=== PATIENT | female | born 1990 | race Caucasian/White ===

== ENCOUNTER → 2018-10-24 | Outpatient (CLI) | payer OTHER ==
--- NOTE | 2018-10-24 12:42 | US ---
EXAMINATION TYPE: US kidneys/renal and bladder DATE OF EXAM: 10/24/2018 COMPARISON: NONE CLINICAL HISTORY: O16.2 Unspecified maternal hypertension, se. Hypertension, patient is 23 weeks preg nant EXAM MEASUREMENTS: Right Kidney: 11.8 x 4.9 x 6.3 cm Left Kidney: 11.0 x 5.5 x 4.7 cm Right Kidney: no hydronephrosis or masses seen Left Kidney: no hydronephrosis or masses seen Bladder: not fully distended Bilateral Jets seen: no There is no evidence for hydronephrosis at this point in time. No nephrolithiasis is seen. No eli s are identified. The urinary bladder is anechoic. Bilateral ureteral jets are seen. IMPRESSION: No distinct abnormality seen.
--- NOTE | 2018-10-24 19:20 | ECHOF ---
Referral Reason:[id number].20 MEASUREMENTS -------- HEIGHT: 160.0 cm WEIGHT: 86.2 kg BP: IVSd: 1.4 cm (0.6 - 1.1) LVIDd: 4.1 cm (3.9 - 5.3) LVPWd: 1.7 cm (0.6 - 1.1) IVSs: 1.5 cm LVIDs: 3.5 cm LVPWs: 1.7 cm LA Diam: 3.3 cm (2.7 - 3.8) LAESV Index (A-L): 29.40 ml/m Ao Diam: 3.1 cm (2.0 - 3.7) AV Cusp: 2.2 cm (1.5 - 2.6) LA Diam: 3.5 cm (2.7 - 3.8) MV EXCURSION: 16.920 mm (> 18.000) MV EF SLOPE: 100 mm/s (70 - 150) EPSS: 0.9 cm MV E Richi: 0.84 m/s MV DecT: 160 ms MV A Richi: 0.56 m/s MV E/A Ratio: 1.49 RAP: 5.00 mmHg RVSP: 19.26 mmHg FINDINGS -------- Sinus rhythm. This was a technically good study. The left ventricular size is normal. There is moderate concentric left ventricular hypertrophy. O verall left ventricular systolic function is normal with, an EF between 55 - 60 %. The right ventricle is normal in size. The left atrial size is normal. The right atrial size is normal. The aortic valve is trileaflet, and appears structurally normal. No aortic stenosis or regurgitation. Mild mitral annular calcification present. Mild mitral regurgitation is present. Mild tricuspid regurgitation present. There is no evidence of pulmonary hypertension. The right v entricular systolic pressure, as measured by Doppler, is 19.26mmHg. There is no pulmonic regurgitation present. There is no pericardial effusion. CONCLUSIONS -------- 1. The left ventricular size is normal. 2. There is moderate concentric left ventricular hypertrophy. 3. Overall left ventricular systolic function is normal with, an EF between 55 - 60 %. 4. The right ventricle is normal in size. 5. The left atrial size is normal. 6. The right atrial size is normal. 7. The aortic valve is trileaflet, and appears structurally normal. No aortic stenosis or regurgitati on. 8. Mild mitral annular calcification present. 9. Mild mitral regurgitation is present. 10. Mild tricuspid regurgitation present. 11. There is no evidence of pulmonary hypertension. 12. The right ventricular systolic pressure, as measured by Doppler, is 19.26mmHg. 13. There is no pulmonic regurgitation present. 14. There is no pericardial effusion. EXECUTIVE COMPENSATION ANALYST: Deysi Gaona RDCS
== END ==
LOC: RADUSWWP 11:52
PROVIDERS: ATTEND Obstetrics & Gynecology
DX: O16.2 Unspecified maternal hypertension, second trimester (principal); Z3A.20 20 weeks gestation of pregnancy
CPT/HCPCS: 76770; 93005; 93306

== ENCOUNTER 2018-12-23 12:24 | Outpatient (CLI) | payer OTHER ==
[2018-12-23] MEDS ORDERED: BETAMET ACET-BETAMETH SOD PHOS 6 MG/ML VIAL IM SCH (13:00)
--- NOTE | 2018-12-24 07:44 | P.MSEPDOC ---
Presenting Problems - Arrival Data Date of Arrival on Unit: 12/23/18 Time of Arrival on Unit: 12:24 Mode of Transport: Ambulatory - Complaint OB-Reason for Admission/Chief Complaint: Celestone Injection Comment: Presents from office; per Dr. Ghosh order for 1st dose of Celestone 12mg, IM x1 now followed by 12mg Celestone IM in 24 hours. Disposition - Disposition OB Disposition: Discharge to home Discharge Date: 12/23/18 Discharge Time: 13:00 I agree with the RN Medical Screening Exam: Yes Risk & Benefit of care provided described in d/c instruction: No Diagnosis: )26.93
== END 2018-12-23 13:00 | disposition home or self-care (01) ==
LOC: FBPOP 12:24
PROVIDERS: ATTEND Obstetrics & Gynecology
DX: O26.93 Pregnancy related conditions, unspecified, third trimester (principal); Z3A.00 Weeks of gestation of pregnancy not specified
CPT/HCPCS: 96372

== ENCOUNTER 2018-12-24 12:45 | Outpatient (CLI) | payer OTHER ==
[2018-12-24] MEDS ORDERED: BETAMET ACET-BETAMETH SOD PHOS 6 MG/ML VIAL IM SCH (13:15)
== END 2018-12-24 13:23 | disposition home or self-care (01) ==
LOC: FBPOP 12:45
PROVIDERS: ATTEND Obstetrics & Gynecology
DX: O26.93 Pregnancy related conditions, unspecified, third trimester (principal); Z3A.32 32 weeks gestation of pregnancy
CPT/HCPCS: 96372; J0702

== ENCOUNTER 2019-01-08 17:48 | Observation (INO) | payer OTHER ==
[2019-01-08 18:42] LABS: Basophils % (A) 0 %; Eosinophils # (A) 0.2 k/uL (0-0.7); Eosinophils % (A) 2 %; HCT 34.2 % (34.0-46.0); HGB 11.2 gm/dL (11.4-16.0); Lymphocytes # (A) 1.4 k/uL (1.0-4.8); Lymphocytes % (A) 14 %; MCH 29.9 pg (25.0-35.0); MCHC 32.6 g/dL (31.0-37.0); MCV 91.6 fL (80.0-100.0); Mean Platelet Volume 8.7; Monocytes # (A) 0.5 k/uL (0-1.0); Monocytes % (A) 5 %; Neutrophils # (A) 7.6 k/uL (1.3-7.7); Neutrophils % (A) 76 %; Platelet Count 195 k/uL (150-450); RBC 3.73 m/uL (3.80-5.40); RDW 12.7 % (11.5-15.5); WBC 9.9 k/uL (3.8-10.6)
[2019-01-08 18:47] LABS: Appearance,Urine Clear (Clear); Bilirubin,Urine Negative (Negative); Blood,Urine Negative (Negative); Color,Urine Yellow; Glucose,Urine (UA) Negative (Negative); Ketones,Urine Negative (Negative); Leukocyte Esterase,Urine Trace (Negative); Mucus,Urine Rare /hpf; Nitrite,Urine Negative (Negative); Protein,Urine Negative (Negative); RBC,Urine <1 /hpf (0-5); Specific Gravity,Urine 1.018 (1.001-1.035); Squamous Epithelial Cell,Urine 5 /hpf (0-4); Urobilinogen,Urine <2.0 mg/dL (<2.0); WBC,Urine 6 /hpf (0-5)
[2019-01-08 18:49] VITALS: BMI 34.3
[2019-01-08 18:49] LABS: Uric Acid 5.1 mg/dL (3.7-7.4)
[2019-01-08 20:23] VITALS: RESP 16
[2019-01-08] MEDS: LABETALOL 200 MG TAB PO SCH (22:00)
[2019-01-09 05:13] VITALS: BP 151/82; PULSE 68; TEMP 96.6
[2019-01-09] MEDS ORDERED: LEVOTHYROXINE 50 MCG TAB PO SCH (06:30)
--- NOTE | 2019-01-09 07:30 | P.HPOB ---
History of Present Illness H&P Date: 01/09/19 This is a 29-year-old white female 1 para 0 EDC 02/18/2019 at 34-2/7 weeks' gestation. Patient's history is remarkable for chronic hypertension since age 10. She had been on 2 different antihypertensive medications, but has not taken them for 2-3 years secondary to lack of insurance and inability to pay for her medications. During the course of this , maternal- medicine consult was obtained. Patient has been reasonably stable on labetalol 600 mg twice daily. However, at the office yesterday her initial blood pressure was 160/100. Recommendation was for overnight hospitalization and blood pressure monitoring. This has been accomplished, please see below. Patient states fetus is been active. She denies headache, visual changes, or right upper quadrant pain. Past medical history is significant for hypertension since age 10, sporadically treated. She also has hypothyroidism and asthma. Past surgical history negative. Current medications labetalol 600 mg twice daily, levothyroxine 50 mg daily, vitamin daily, baby aspirin daily. ALLERGIES include seasonal ALLERGIES, and Ceclor to which patient is unable to describe her ALLERGIC response. Family history is significant for hypertension, diabetes, stroke, renal failure, heart attack, autism, asthma. 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 She is never been a smoker and denies alcohol or drug use. history significant for blood type B positive, rubella status immune. VDRL testing, urine culture, hepatitis B surface antigen, HIV testing, gonorrhea and chlamydia cultures all negative. Liver enzymes, uric acid all within normal range. 24 hour urines positive for 341 g of protein most recent sample. Renal ultrasound negative. EKG within normal limits. Echocardiogram consistent with mild left ventricular hypertrophy. Betamethasone has been received 2. On exam patient is 5 foot 2 inches, 194 pounds. Initial blood pressure in labor and delivery 170s over 100s. Blood pressure stabilization noted, checked every 2 hours through the night. Blood pressure ranging 1:30 to 150s over 70s to 90s. Patient has no peripheral edema. She has 1+ reflexes. heart rate is consistent with reactive NST. Chest is clear in all hollins. AST, ALTs, uric acid all within normal limits. Impression: Long-standing hypertension since age 10. Reasonably stable on labetalol 600 mg twice daily. Plan: Again, blood pressures have been stable throughout the night, 130 to 150 over 70s to 90s range. Patient feels well. status is reassuring with most recent biophysical profile in the office this week 8 out of 8 and reactive NST. Home blood pressures also reviewed, and remaining in the 1:30 to 150 over 70s to 90s range. Patient is judged to be in stable condition for discharge home. She will follow-up in the office with me in 4 days for repeat biophysical profile, NST, lab testing, and evaluation. Patient is reminded to call with any headache, visual changes, or right upper quadrant pain. This case has been discussed in detail with Dr. Agosto, maternal- medicine expert at [facility]. Review of Systems See dictation under HPI please Past Medical History Past Medical History: Thyroid Disorder Additional Past Medical History / Comment(s): Long-standing hypertension since age 10 History of Any Multi-Drug Resistant Organisms: None Reported Past Surgical History: No Surgical Hx Reported Past Anesthesia/Blood Transfusion Reactions: No Reported Reaction Past Psychological History: No Psychological Hx Reported Smoking Status: Never smoker Past Alcohol Use History: None Reported Past Drug Use History: None Reported - Past Family History Mother Family Medical History: No Reported History Medications and Allergies Home Medications Medication Instructions Recorded Confirmed Type Labetalol [Trandate] 600 mg PO BID 12/24/18 01/08/19 History Levothyroxine Sodium [Synthroid] 50 mcg PO DAILY 12/24/18 01/08/19 History Aspirin 81 mg PO DAILY 01/08/19 01/08/19 History Pnv No.95/Ferrous Fum/Folic AC 1 tab PO DAILY 01/08/19 01/08/19 History [ Multivitamin Tablet] Allergies Allergy/AdvReac Type Severity Reaction Status Date / Time cefaclor [From [facility]] Allergy Diarrhea Verified 12/23/18 12:45 Exam Vital Signs Temp Pulse Resp BP BP Pulse Ox 01/09/19 04:00 96.6 F L 68 16 151/82 98 01/08/19 20:00 97.4 F L 80 16 146/79 01/08/19 18:32 98.3 F 93 18 149/89 171/97 97 Intake and Output 01/08/19 01/09/19 01/09/19 22:59 06:59 14:59 Other: # Voids 2 1 Weight 87.997 kg See dictation under HPI please Results Result Diagrams: 01/08/19 18:30 Abnormal Lab Results - Last 24 Hours (Table) 01/08/19 01/08/19 Range/Units 18:00 18:30 RBC 3.73 L (3.80-5.40) m/uL Hgb 11.2 L (11.4-16.0) gm/dL Ur Leukocyte Esterase Trace H (Negative) Urine WBC 6 H (0-5) /hpf Ur Squamous Epith Cells 5 H (0-4) /hpf Urine Mucus Rare H (None) /hpf Assessment and Plan Assessment: 34-2/7 weeks intrauterine , long-standing hypertension since age 10. Proteinuria. Mild left ventricular hypertrophy. Blood pressures stable on labetalol 600 mg twice daily. Plan: For discharge home later today. Follow-up in the office with me in 4 days for repeat biophysical profile, ultrasound for estimated weight, repeat laboratory testing, and blood pressure evaluation. Patient is aware to call with any headache, visual changes, right upper quadrant pain. Management plan in close conjunction with maternal- medicine at [facility]. Time with Patient: Greater than 30
--- NOTE | 2019-01-09 07:42 | P.DS ---
Providers Date of admission: 01/08/19 18:14 Expected date of discharge: 01/09/19 Attending physician: Harini Ghosh [facility] Hospital Course: This is a 29-year-old female 1 para 0 EDC 02/18/2019 at 34-2/7 weeks' gestation. Patient presented for blood pressure monitoring overnight. She has a history of chronic hypertension, stable on labetalol 600 mg twice daily. Labs on admission include platelets 195,000, UA negative for protein, AST 22, ALTs 22, uric acid 5.1. Patient has been monitored carefully through the evening with blood pressures every 2 hours. On admission it was high at 170s over 100s. Since that time, with the large stable manometer as appropriate per patient's stated weight, blood pressures have been 130s to 150s over 70s to 90s. This morning she feels well, she denies headache, visual changes, or right upper quadrant pain. heart rate is consistent with reactive NST. She is not hyperreflexic. She has no peripheral edema. Physical exam is within normal limits. In my judgment patient is in stable condition for discharge home. She will follow-up with me in the office next week for continued biophysical monitoring, NSTs, and repeat labs. She will continue taking her blood pressure at home and will call with systolics of 160s over diastolics of 100s. She will call with any decreased movement, or any unusual problems or complaints. She will continue taking her labetalol 600 mg twice daily, at 10 AM and 10 PM. She will continue baby aspirin daily. Patient Condition at Discharge: Stable Plan - Discharge Summary Discharge Rx Participant: No New Discharge Prescriptions: No Action Labetalol [Trandate] 600 mg PO BID Levothyroxine Sodium [Synthroid] 50 mcg PO DAILY Aspirin 81 mg PO DAILY Pnv No.95/Ferrous Fum/Folic AC [ Multivitamin Tablet] 1 tab PO DAILY Discharge Medication List Labetalol [Trandate] 600 mg PO BID 12/24/18 [History] Levothyroxine Sodium [Synthroid] 50 mcg PO DAILY 12/24/18 [History] Aspirin 81 mg PO DAILY 01/08/19 [History] Pnv No.95/Ferrous Fum/Folic AC [ Multivitamin Tablet] 1 tab PO DAILY 01/08/19 [History] Follow up Appointment(s)/Referral(s): Harini Ghosh MD [Primary Care Provider] - 3 Days Discharge Disposition: HOME SELF-CARE
[2019-01-09] MEDS ORDERED: ASPIRIN 81 MG PO SCH (09:00)
[2019-01-09] MEDS: LABETALOL 200 MG TAB PO SCH (09:42)
== END 2019-01-09 10:15 | disposition home or self-care (01) ==
LOC: FBPOP 17:48 → INTOOBSV 18:14 → 4FBP 18:14
PROVIDERS: ADMIT Obstetrics & Gynecology; ATTEND Obstetrics & Gynecology
DX: O16.3 Unspecified maternal hypertension, third trimester (principal); Z3A.34 34 weeks gestation of pregnancy; T46.5X6A Underdosing of other antihypertensive drugs, initial encounter; Z91.120 Patient's intentional underdosing of medication regimen due to financial hardship; O11.3 Pre-existing hypertension with pre-eclampsia, third trimester; O99.513 Diseases of the respiratory system complicating pregnancy, third trimester; J45.909 Unspecified asthma, uncomplicated; O99.283 Endocrine, nutritional and metabolic diseases complicating pregnancy, third trimester; E03.9 Hypothyroidism, unspecified; Z79.899 Other long term (current) drug therapy; Z79.82 Long term (current) use of aspirin; Z79.890 Hormone replacement therapy; Z88.1 Allergy status to other antibiotic agents; Z83.3 Family history of diabetes mellitus; Z82.5 Family history of asthma and other chronic lower respiratory diseases; Z82.49 Family history of ischemic heart disease and other diseases of the circulatory system; Z82.3 Family history of stroke; Z84.1 Family history of disorders of kidney and ureter; Z84.89 Family history of other specified conditions
CPT/HCPCS: 59025; 84450; 84460; 84550; 85025; 81001; G0378 ×3

== ENCOUNTER 2019-02-03 11:48 | Inpatient (IN) | payer OTHER ==
[2019-02-03] MEDS ORDERED: ZOLPIDEM 5 MG TAB PO PRN (12:01)
[2019-02-03] MEDS ORDERED: BUTORPHANOL 1 MG/ML 1 ML VIAL IV PRN ×2 (12:01→18:50)
[2019-02-03] MEDS: MISOPROSTOL 25 MCG TAB VAGINAL PRN ×4 (12:23→22:05)
--- NOTE | 2019-02-03 12:25 | P.HPOB ---
History of Present Illness H&P Date: 02/03/19 This is a 29-year-old white female 1 para 0 EDC 02/18/2019 at 37-6/7 weeks' gestation. Patient presents today for induction for history of chronic hypertension since age 10. has been managed with maternal- medicine experts, who had recommended delivery at 38 weeks. Cervix is not entirely favorable, and therefore the decision to proceed with Cytotec induction has been made. Ultrasound of kidney and bladder is within normal limits. Echocardiogram reveals mild left ventricular hypertrophy. Weekly labs have all been within normal limits to date, proteinuria is noted. Patient is aware of the risks benefits and alternatives of this plan. She has been having irregular mild uterine contractions spontaneously. In the office today biophysical profile was 8 out of 8. Past medical history is significant for hypertension since age 10, hypothyroidism, and asthma. Past surgical history negative. Current medications labetalol 600 mg twice daily, levothyroxine 50 MCG's daily, metoclopramide 10 mg twice daily as needed, vitamin daily. ALLERGIES include Ceclor and seasonal ALLERGIES to which the reaction is unnoted. Family history significant for renal failure, heart attack, autism, stroke, type 2 diabetes, hypothyroidism, hypertension, asthma. Reproductive history is negative. Social history patient is single, father of the baby is involved, she is appropriate clear. She denies tobacco alcohol or drug use. history significant for blood type B positive, rubella status immune. VDRL, urine culture, hepatitis B surface antigen, HIV testing, gonorrhea and chlamydia cultures, group B strep cultures all negative. On exam this is a pleasant white female who is 5 foot 3 inches, 201 pounds, blood pressure 145/91, pulse 85, respirations 16. General physical exam is within normal limits. Cervix is fingertip to 1 cm dilated, posterior, soft, 50% effaced. heart rate is consistent with reactive NST. Impression: 38-6/7 weeks intrauterine , history of chronic hypertension since age 10, closely monitored with the assistance of maternal- medicine. Recommendation is for delivery at 38 weeks. Plan: Cytotec every 3-4 hours intravaginally. Nothing by mouth after midnight. Close maternal and surveillance. Continue labetalol 600 mg orally twice daily. Tomorrow anticipate artificial amniorrhexis and vaginal delivery. We will check AST, ALTs, uric acid, PT and PTT with admission labs. Review of Systems Constitutional: Reports as per HPI Past Medical History Past Medical History: Thyroid Disorder Additional Past Medical History / Comment(s): Long-standing hypertension since age 10 History of Any Multi-Drug Resistant Organisms: None Reported Past Surgical History: No Surgical Hx Reported Past Anesthesia/Blood Transfusion Reactions: No Reported Reaction Past Psychological History: No Psychological Hx Reported Smoking Status: Never smoker Past Alcohol Use History: None Reported Past Drug Use History: None Reported - Past Family History Mother Family Medical History: No Reported History Medications and Allergies Home Medications Medication Instructions Recorded Confirmed Type Labetalol [Trandate] 600 mg PO BID 12/24/18 02/03/19 History Levothyroxine Sodium [Synthroid] 50 mcg PO DAILY 12/24/18 02/03/19 History Aspirin 81 mg PO DAILY 01/08/19 02/03/19 History Pnv No.95/Ferrous Fum/Folic AC 1 tab PO DAILY 01/08/19 02/03/19 History [ Multivitamin Tablet] Allergies Allergy/AdvReac Type Severity Reaction Status Date / Time cefaclor [From [facility]] Allergy Diarrhea Verified 02/03/19 12:00 Exam Intake and Output 02/02/19 02/03/19 02/03/19 22:59 06:59 14:59 Other: Weight 91.172 kg See dictation under [facility] please Assessment and Plan Assessment: 38-6/7 weeks intrauterine , unfavorable cervix, chronic hypertension since age 10. Plan: Cytotec intravaginal induction. Nothing by mouth after midnight. Oxytocin augm entation tomorrow morning with the expectation of vaginal delivery. Continue labetalol 600 mg twice daily. Time with Patient: Greater than 30
[2019-02-03 12:41] VITALS: BMI 35.6
[2019-02-03 12:54] LABS: INR 0.8 (<1.2); Partial Thromboplastin Time 22.6 sec (22.0-30.0); Prothrombin Time 9.4 sec (9.0-12.0)
[2019-02-03 13:02] LABS: Uric Acid 6.4 mg/dL (3.7-7.4)
[2019-02-03 14:21] LABS: Basophils % (A) 0 %; Eosinophils # (A) 0.1 k/uL (0-0.7); Eosinophils % (A) 1 %; HCT 34.3 % (34.0-46.0); HGB 10.9 gm/dL (11.4-16.0); Lymphocytes # (A) 1.6 k/uL (1.0-4.8); Lymphocytes % (A) 15 %; MCH 29.4 pg (25.0-35.0); MCHC 31.8 g/dL (31.0-37.0); MCV 92.2 fL (80.0-100.0); Mean Platelet Volume 8.9; Monocytes # (A) 0.8 k/uL (0-1.0); Monocytes % (A) 7 %; Neutrophils # (A) 7.8 k/uL (1.3-7.7); Neutrophils % (A) 74 %; Platelet Count 178 k/uL (150-450); RBC 3.72 m/uL (3.80-5.40); RDW 13.2 % (11.5-15.5); WBC 10.5 k/uL (3.8-10.6)
[2019-02-03] MEDS: LABETALOL 200 MG TAB PO SCH (21:30)
[2019-02-04] MEDS: LACTATED RINGERS 1,000 ML IV SCH ×3 (02:15→21:23)
[2019-02-04] MEDS ORDERED: OXYTOCIN 10 UNIT/ML 1 ML VIAL IM PRN (02:18)
[2019-02-04] MEDS ORDERED: LIDOCAINE 0.5% (PF) 5 MG/ML (50 ML SDV) SQ PRN (02:18)
[2019-02-04] MEDS ORDERED: METHYLERGONOVINE 0.2 MG/ML 1 ML AMP IM PRN (02:18)
[2019-02-04] MEDS ORDERED: TERBUTALINE 1 MG/ML VIAL SQ PRN (02:18)
[2019-02-04] MEDS ORDERED: CARBOPROST TROMETHAMINE 250 MCG/ML 1 ML AMP IM PRN (02:18)
[2019-02-04] MEDS ORDERED: fentaNYL (PF) 50 MCG/ML 5 ML AMP ONE (02:58)
[2019-02-04] MEDS ORDERED: SODIUM CHLORIDE 0.9% 100 ML BAG ONE (02:58)
[2019-02-04] MEDS ORDERED: ROPIVACAINE 5MG/ML 20ML VIAL ONE (02:58)
[2019-02-04] MEDS: OXYTOCIN 30 UNITS/500 ML NS 30 UNIT in SALINE 1 500ML.BAG IV SCH ×2 (06:07→16:05)
[2019-02-04] MEDS ORDERED: ONDANSETRON 4 MG/2 ML VIAL IVP PRN (07:44)
[2019-02-04] MEDS: LABETALOL 200 MG TAB PO SCH ×2 (08:48→17:31)
[2019-02-04] MEDS ORDERED: HYDROCORTISONE 2.5% RECTAL CREAM 30 GM TUBE RECTAL PRN (15:36)
[2019-02-04] MEDS ORDERED: WITCH HAZEL 1 EACH MED..PAD TOPICAL PRN (15:36)
[2019-02-04] MEDS ORDERED: IBUPROFEN 600 MG TAB PO PRN (15:36)
[2019-02-04] MEDS ORDERED: diphenhydrAMINE 25 MG CAP PO PRN (15:36)
[2019-02-04] MEDS ORDERED: ZOLPIDEM 5 MG TAB PO PRN (15:36)
[2019-02-04] MEDS ORDERED: diphenhydrAMINE ELIXIR 25 MG/10 ML CUP PO PRN (15:36)
[2019-02-04] MEDS ORDERED: SIMETHICONE 80 MG CHEWABLE PO PRN (15:36)
[2019-02-04] MEDS ORDERED: diphenhydrAMINE 50 MG CAP PO PRN (15:36)
[2019-02-04] MEDS ORDERED: diphenhydrAMINE 50 MG/ML 1 ML VIAL IVP PRN ×2 (15:36)
[2019-02-04] MEDS ORDERED: ACETAMINOPHEN TAB 325 MG TAB PO PRN (15:36)
[2019-02-04] MEDS ORDERED: LANOLIN CREAM 5 GM TUBE TOPICAL PRN (15:36)
[2019-02-04] MEDS ORDERED: BENZOCAINE/MENTHOL SPRAY 1 GM/SPRAY AEROSOL TOPICAL PRN (15:36)
--- NOTE | 2019-02-04 15:36 | P.PROBDLV ---
Vaginal Delivery Note - . Vaginal Delivery Note: This is a 29-year-old white female 1 para 0 EDC 02/18/2019 at 38 weeks gestation. Patient presented yesterday for induction of labor utilizing Cytotec. Her is remarkable for chronic labile maternal hypertension, since age 10. She has been co-managed with maternal- medicine physicians at [facility]. Recommendation is for delivery at 38 weeks. Patient also has known left ventricular hypertrophy. Please see dictated history and physical for details. Blood pressure on admission 145/91. Patient received 4 doses of Cytotec. She rested through the night. Stadol was receive 1. In the morning, artificial amniorrhexis revealed clear fluid. Oxytocin was started and titrated per hospital protocol. Rupee strep cultures were negative. Epidural was placed per her request. Blood pressure was labile through the first stage of labor. Labetalol 600 mg twice daily was given, dosed at 09 100 this morning. Patient progressed well through the first stage of labor was judged to be completely dilated at 1434 hrs. Second stage of labor commenced. Excellent maternal expulsive efforts were noted. Ultimately the perineal body was prepped and draped in usual sterile fashion. Infant's head delivered occiput anterior and she restituted accordingly. The was no nuchal cord noted. The right or anterior shoulder was delivered from underneath the pubic symphysis at which time the oropharynx, nasopharynx and external nares were all bulb suctioned on the perineal body. Patient was officially delivered of a liveborn female at 1518 hrs. Umbilical cord was doubly clamped and ligated, she was handed to waiting nurses for evaluation where scores of 9 and 9 at one and 5 minutes respectively were given. Placenta delivered spontaneously, it was inspected and noted to be intact with trivascular cord at 1519 hrs. It will be sent to pathology for further evaluation. Inspection of the cervix, vagina, perineum, periurethral, and perirectal areas revealed a small right first-degree labial laceration. This was repaired in the usual fashion with a single [id number] suture. Excellent reapproximation was noted. Fundus is firm and in the midline, symmetric and 18 week size upon completion of delivery. Total estimated blood loss 250 mL's. weighs 08/22/2004 grams or 6 lbs. 3 oz. Blood pressure will be monitored carefully in the period.
[2019-02-04] MEDS ORDERED: OXYTOCIN 20 UNITS/1000 ML NS 1,000 ML IV SCH (15:45)
[2019-02-04] MEDS: hydrALAZINE HCL 20 MG/ML 1 ML VIAL IVP PRN ×2 (16:59→17:30)
[2019-02-04] MEDS: NIFEdipine XL 30 MG TAB.ER.24 PO SCH (21:22)
[2019-02-04] MEDS: SENNOSIDES-DOCUSATE SODIUM 1 EACH TAB PO SCH (21:24)
--- NOTE | 2019-02-04 23:36 | P.CONS ---
History of Present Illness - Reason for Consult Consult date: 02/04/19 elevated blood pressure Requesting physician: Harini Ghosh - Chief Complaint post - History of Present Illness 29-year-old female with history of hypothyroid and hypertension Patient is seen today in the . She just delivered a healthy baby girl a few hours ago, normal vaginal delivery. Patient overall doing pretty well, denies any headache changes in her vision denies any chest pain trouble breathing denies any abdominal pain nausea vomiting denies any chest pain. Her blood pressure has been uncontrolled , patient received her usual dos es of labetalol and received 2 IV pushes of hydralazine. Her blood pressure improved, medicine was consulted for further recommendations regarding management of her hypertension. Patient is planning on breast-feeding, she reports long history of hypertension she doesn't have a PCP she follows up with OB. She developed hypertension at a younger age however no investigation and second causes of hypertension was done. At this point patient's asymptomatic. I answered all patient questions and rec ommended for the patient to follow up closely on her blood pressure after discharge Review of Systems Pertinent positives as noted in HPI. All other systems were reviewed and are negative Past Medical History Past Medical History: Thyroid Disorder Additional Past Medical History / Comment(s): Long-standing hypertension since age 10 History of Any Multi-Drug Resistant Organisms: None Reported Past Surgical History: No Surgical Hx Reported Past Anesthesia/Blood Transfusion Reactions: No Reported Reaction Past Psychological History: No Psychological Hx Reported Smoking Status: Never smoker Past Alcohol Use History: None Reported Past Drug Use History: None Reported - Past Family History Mother Family Medical History: No Reported History Medications and Allergies Home Medications Medication Instructions Recorded Confirmed Type Labetalol [Trandate] 600 mg PO BID 12/24/18 02/03/19 History Levothyroxine Sodium [Synthroid] 50 mcg PO DAILY 12/24/18 02/03/19 History Aspirin 81 mg PO DAILY 01/08/19 02/03/19 History Pnv No.95/Ferrous Fum/Folic AC 1 tab PO DAILY 01/08/19 02/03/19 History [ Multivitamin Tablet] Allergies Allergy/AdvReac Type Severity Reaction Status Date / Time cefaclor [From [facility]] Allergy Diarrhea Verified 02/03/19 12:00 Physical Exam Vitals: Vital Signs Temp Pulse Resp BP 02/04/19 19:23 98.1 F 96 16 142/84 02/04/19 18:10 16 150/82 02/04/19 17:25 93 20 188/99 02/04/19 17:00 98.5 F 61 18 207/105 02/04/19 16:30 98.3 F 82 18 176/93 02/04/19 16:15 98.3 F 174/88 02/04/19 16:00 77 19 166/87 02/04/19 15:45 81 19 166/94 02/04/19 15:35 98.6 F 88 20 168/98 Intake and Output 02/04/19 02/04/19 02/04/19 06:59 14:59 22:59 Intake Total 9.967 Output Total 200 Balance -200 9.967 Intake: Intake, IV Titration 9.967 Amount Oxytocin 30 Units/500 ml 9.967 Ns 30 unit In Saline 1 500ml.bag @ 1 MILLIUNIT/ MIN 1 mls/hr IV .Q24H [facility] Rx#:[id number] Output: Urine 200 Constitutional: No acute distress, conversant, pleasant Eyes: Anicteric sclerae, moist conjunctiva, no lid-lag Pupils equal round reactive to light ENMT: NC/AT Oropharynx clear, no erythema, or exudates Neck: Supple, FROM, no masses, or JVD No carotid bruits No thyromegaly Lungs: Clear to auscultation Clear to percussion Normal respiratory effort, no accessory muscle use Cardiovascular: Heart regular in rate and rhythm, No murmurs, gallops, or rubs No peripheral edema Abdominal: Soft Nontender, no guarding, rebound or rigidity Abdomen moving with respiration Normoactive bowel sounds No hepatomegaly, No splenomegaly No palpable mass No abdominal wall hernia noted Skin: Normal temperature, tone, texture, turgor No induration No subcutaneous nodules No rash, lesions No ulcers Extremities: No digital cyanosis No clubbing Pedal pulses intact and symmetrical Radial pulses intact and symmetrical No calf tenderness Psychiatric: Alert and oriented to person, place and time Appropriate affect fair judgement Neuro Muscles Strength 5/5 in all 4 extremities Sensation to light touch grossly present throughout Cranial nerves II-XII grossly intact No focal sensory deficits Lymphatics: no palpable cervical or supraclavicular , or inguinal lymph nodes Results CBC & Chem 7: 02/03/19 12:23 Assessment and Plan Assessment: 29-year-old female with history of hypertension hypothyroid admitted to OB for vaginaal delivery. Patient tolerated procedure well and had a healthy baby girl. Her blood pressure was uncontrolled post delivery and medicine was consulted to assist with management Plan: malignant hypertension with history of hypertension resume labetalol 600 bid start procardia XL 30 mg daily close monitoring of vital signs Goal BP <140/90 currently asymptomatic Avoid NSAIDs hypothyroidism resume home meds s/p normal vaginal delivery of healthy baby girl gestational anemia management per OB follow up renal function Thank you for allowing us to participate in the care of this patient. Do not hesitate to contact us with questions. Someone can be reached from the [facility] hospitalist group at all hours of the day at [phone].
[2019-02-05] MEDS: LACTATED RINGERS 1,000 ML IV SCH (02:34)
[2019-02-05] MEDS: LEVOTHYROXINE 50 MCG TAB PO SCH (06:40)
[2019-02-05 08:03] LABS: ALT 25 U/L (9-52); AST 49 U/L (14-36); African American GFR (CKD) >90 (>60 ml/min/1.73 sqM); Anion Gap 6 mmol/L; Blood Urea Nitrogen 12 mg/dL (7-17); Calcium 9.1 mg/dL (8.4-10.2); Carbon Dioxide 24 mmol/L (22-30); Chloride 107 mmol/L (98-107); Glucose 73 mg/dL (74-99); Potassium 3.9 mmol/L (3.5-5.1); Sodium 137 mmol/L (137-145)
[2019-02-05] MEDS: LABETALOL 200 MG TAB PO SCH ×2 (09:02→21:30)
[2019-02-05] MEDS: NIFEdipine XL 30 MG TAB.ER.24 PO SCH (09:02)
--- NOTE | 2019-02-05 09:07 | P.PN ---
Subjective Progress Note Date: 02/05/19 Principal diagnosis: day #1 Slept well. Denies headache, visual changes or right upper quadrant pain. Minimal to moderate bleeding, no complaints. Objective - Vital Signs Vital signs: Vital Signs Temp 98.2 F 02/05/19 08:00 Pulse 83 02/05/19 08:00 Resp 16 02/05/19 08:00 BP 159/91 02/05/19 08:00 Pulse Ox 98 02/05/19 04:00 Intake & Output 02/04/19 02/05/19 02/05/19 18:59 06:59 18:59 Intake Total 9.967 Balance 9.967 Intake: Intake, IV Titration 9.967 Amount Oxytocin 30 Units/500 ml 9.967 Ns 30 unit In Saline 1 500ml.bag @ 1 MILLIUNIT/ MIN 1 mls/hr IV .Q24H JONATHAN Rx#:[id number] Other: # Voids 1 1 - Constitutional General appearance: Present: average body habitus, cooperative - EENT Eyes: Present: PERRLA ENT: Present: hearing grossly normal - Neck Neck: Present: normal ROM Thyroid: bilateral: normal size - Respiratory Respiratory: bilateral: CTA - Cardiovascular Rhythm: regular - Gastrointestinal General gastrointestinal: Present: normal bowel sounds - Genitourinary Genitourinary Comment(s): Fundus firm, symmetric, midline, 18 week size, nontender. Perineal body clean and dry. - Integumentary Integumentary: Present: normal, normal turgor - Neurologic Neurologic: Present: CNII-XII intact - Musculoskeletal Musculoskeletal: Present: gait normal, strength equal bilaterally - Psychiatric Psychiatric: Present: A&O x's 3, appropriate affect, intact judgment & insight - Labs CBC & Chem 7: 02/03/19 12:23 02/05/19 06:28 Labs: Abnormal Lab Results - Last 24 Hours (Table) 02/05/19 Range/Units 06:28 Glucose 73 L (74-99) mg/dL AST 49 H (14-36) U/L Assessment and Plan Assessment: day #1, blood pressure improved with Procardia XL. Plan: We'll continue to monitor blood pressure through the day. Likely discharge home tomorrow. Time with Patient: Less than 30
[2019-02-05] MEDS: SENNOSIDES-DOCUSATE SODIUM 1 EACH TAB PO SCH (09:51)
--- NOTE | 2019-02-05 19:42 | P.PN ---
Subjective Progress Note Date: 02/05/19 (delayed charting ) Principal diagnosis: high blood pressure Patient seen and examined at bedside. She denies any chest pain, shortness of breath, significant lower extremity edema, or headaches. She reports that she has had high blood pressures. Prior to becoming she Her blood pressures were in the 200s. She was not seeing a physician if she has lost her insurance. Her that she had been on blood pressure medications as well as thyroid medications. Patient will need a PCP on discharge and has [place]. Objective - Vital Signs Vital signs: Vital Signs Temp 98 F 02/05/19 16:00 Pulse 87 02/05/19 16:00 Resp 16 02/05/19 16:00 BP 145/82 02/05/19 16:00 Pulse Ox 98 02/05/19 04:00 Intake & Output 02/05/19 02/05/19 02/06/19 06:59 18:59 06:59 Intake Total 200 Balance 200 Intake: Oral 200 Other: # Voids 1 2 - Exam General: non toxic, no distress, appears at stated age Derm: warm, dry Head: atraumatic, normocephalic, symmetric Eyes: EOMI, no lid lag, anicteric sclera Mouth: no lip lesion, mucus membranes moist Cardiovascular: S1S2 reg, no murmur, positive posterior tibial pulse bilateral, Lungs: CTA bilateral, no rhonchi, no rales , no accessory muscle use Abdominal: soft, nontender to palpation, no guarding, no appreciable organomegaly Ext: no gross muscle atrophy, no edema, no contractures Neuro: CN II-XI grossly intact, no focal neuro deficits Psych: Alert, oriented, appropriate affect - Labs CBC & Chem 7: 02/03/19 12:23 02/05/19 06:28 Labs: Abnormal Lab Results - Last 24 Hours (Table) 02/05/19 Range/Units 06:28 Glucose 73 L (74-99) mg/dL AST 49 H (14-36) U/L Assessment and Plan Assessment: Hypertensive urgency with history of hypertension -Continue with labetalol 600 mg twice daily and Procardia XL 30 mg daily -Follow Blood pressure less than 140/90 -Follow blood pressures closely -Need to set patient up with PCP on discharge Hypothyroidism -Continue with Synthroid Obesity BMI 35.6 - structured outpatient weight loss Status post normal vaginal delivery of healthy baby girl -Gestational management per OB services
[2019-02-06] MEDS: SENNOSIDES-DOCUSATE SODIUM 1 EACH TAB PO SCH ×2 (03:09→08:42)
[2019-02-06] MEDS: LABETALOL 200 MG TAB PO SCH ×2 (06:26→08:43)
[2019-02-06] MEDS: LEVOTHYROXINE 50 MCG TAB PO SCH (06:38)
--- NOTE | 2019-02-06 08:04 | P.DS ---
Providers Date of admission: 02/03/19 11:48 Expected date of discharge: 02/06/19 Attending physician: Harini Ghosh Consults: 02/04/19 18:25 Consult Physician Stat Consulting Provider: Tanna Talbot Consult Reason/Comments: chronic Hypertension Do you want consulting provider notified?: Yes Primary care physician: Stated None Hospital Course: This is a 29-year-old white female 1 para 0 EDC 02/18/2019 at 38 weeks gestation. Patient was brought in for induction for history of chronic hypertension, labile blood pressures, upon recommendation of maternal medicine. is remarkable for blood type B positive, rubella status immune, group B strep cultures negative. Please see admitting history and physical for details. Patient received Cytotec induction, with oxytocin to follow. She went on to deliver a liveborn female infant with scores of 9 and 9 at one and 5 minutes respectively. weighed 6 lbs. 3 oz. or 08/22/2004 grams. Estim ated blood loss 250 cc, small first-degree perineal laceration easily repaired. Please see dictated delivery note for details. On admission patient was on labetalol 600 mg twice daily which she has continued. Procardia XL 30 mg has also been added upon recommendation of internal medicine for continued high blood pressures. Blood pressure this morning 140s over 80s. Patient appears well. She feels well. She denies headache, visual changes or right upper quadrant pain. Fundus is firm and in the midline, symmetric and 18 week size. Breast-feeding appears to be going well. Patient has no edema, normal reflexes, and perineal body is clean and dry. She is judged to be in stable condition for discharge home. She will follow-up with me in the office in 2 weeks. She will continue taking her vitamin daily, her labetalol twice daily, and the Procardia once each morning. She will continue taking her blood pressure readings at home and will bring them to the office in 2 weeks. I've again reminded her to call me with any fevers shakes or chills, headache, visual changes, or right upper quadrant pain. She will call with any difficulties or questions. Contraceptive options have been reviewed, no intercourse tampons or douching is stressed at this time. I have also strongly recommended that she establish with a primary care physician or hardware designer in her area for continued blood pressure surveillance and management. Patient Condition at Discharge: Stable Plan - Discharge Summary Discharge Rx Participant: No New Discharge Prescriptions: New NIFEdipine XL [Procardia XL] 30 mg PO DAILY #30 tab.er.24 Continue Labetalol [Trandate] 600 mg PO BID #60 tab No Action Levothyroxine Sodium [Synthroid] 50 mcg PO DAILY Aspirin 81 mg PO DAILY Pnv No.95/Ferrous Fum/Folic AC [ Multivitamin Tablet] 1 tab PO DAILY Discharge Medication List Levothyroxine Sodium [Synthroid] 50 mcg PO DAILY 12/24/18 [History] Aspirin 81 mg PO DAILY 01/08/19 [History] Pnv No.95/Ferrous Fum/Folic AC [ Multivitamin Tablet] 1 tab PO DAILY 01/08/19 [History] Labetalol [Trandate] 600 mg PO BID #60 tab 02/06/19 [Rx] NIFEdipine XL [Procardia XL] 30 mg PO DAILY #30 tab.er.24 02/06/19 [Rx] Follow up Appointment(s)/Referral(s): Viktor Ag DO [REFERRING] - 1 Week
[2019-02-06 08:43] VITALS: RESP 16; TEMP 98.1
[2019-02-06] MEDS: NIFEdipine XL 30 MG TAB.ER.24 PO SCH (08:48)
--- NOTE | 2019-02-06 09:29 | P.PN ---
Subjective Progress Note Date: 02/06/19 Principal diagnosis: high blood pressure Patient seen and examined at bedside. She denies any chest pain, shortness breath, nausea, or vomiting. She will follow up with her PCP 1 week after discharge and establish with Dr. Ag out of [place]. She was also given information on the [facility] clinic should he not except her Medicaid. She will medical log of her blood pressures once daily and call her physician should her systolic blood pressure be less than 120. Patient understands all instructions. Objective - Vital Signs Vital signs: Vital Signs Temp 98.1 F 02/06/19 08:30 Pulse 81 02/06/19 08:50 Resp 16 02/06/19 08:30 BP 150/93 02/06/19 08:50 Pulse Ox 98 02/05/19 04:00 Intake & Output 02/05/19 02/06/19 02/06/19 18:59 06:59 18:59 Intake Total 200 480 Balance 200 480 Intake: Oral 200 480 Other: # Voids 2 2 - Exam General: non toxic, no distress, appears at stated age Derm: warm, dry Head: atraumatic, normocephalic, symmetric Eyes: EOMI, no lid lag, anicteric sclera Mouth: no lip lesion, mucus membranes moist Cardiovascular: S1S2 reg, no murmur, positive posterior tibial pulse bilateral, Lungs: CTA bilateral, no rhonchi, no rales , no accessory muscle use Abdominal: soft, nontender to palpation, no guarding, no appreciable organomegaly Ext: no gross muscle atrophy, trace edema, no contractures Neuro: CN II-XI grossly intact, no focal neuro deficits Psych: Alert, oriented, appropriate affect - Labs CBC & Chem 7: 02/03/19 12:23 02/05/19 06:28 Assessment and Plan Assessment: Hypertensive urgency with history of hypertension, improved -Continue with labetalol 600 mg twice daily and Procardia XL 30 mg daily- RX written -Follow Blood pressure goal less than 140/90 -Follow blood pressures closely She will follow with Dr. Ag She was also given information on the [facility] in [place] should he not except her Medicaid. She will medical log of her blood pressures once daily and call her physician should her systolic blood pressure be less than 120. Hypothyroidism -Continue with Synthroid Obesity BMI 35.6 - structured outpatient weight loss Status post normal vaginal delivery of healthy baby girl -Gestational management per OB services
[2019-02-06 11:46] VITALS: BP 150/94; PULSE 83
== END 2019-02-06 14:44 | disposition home or self-care (01) | DRG 807 ==
LOC: 4FBP 11:48
PROVIDERS: ADMIT Obstetrics & Gynecology; ATTEND Obstetrics & Gynecology
PROC: 00HU33Z Insertion of Infusion Device into Spinal Canal, Percutaneous Approach (ICD-10-PCS; 2019-02-03)
PROC: 10907ZC Drainage of Amniotic Fluid, Therapeutic from Products of Conception, Via Natural or Artificial Opening (ICD-10-PCS; 2019-02-03)
PROC: 3E033VJ Introduction of Other Hormone into Peripheral Vein, Percutaneous Approach (ICD-10-PCS; 2019-02-03)
PROC: 10E0XZZ Delivery of Products of Conception, External Approach (ICD-10-PCS; principal; 2019-02-04)
PROC: 0HQ9XZZ Repair Perineum Skin, External Approach (ICD-10-PCS; 2019-02-04)
PROC: 3E0R3BZ Introduction of Anesthetic Agent into Spinal Canal, Percutaneous Approach (ICD-10-PCS; 2019-02-04)
PROC: 3E0P7VZ Introduction of Hormone into Female Reproductive, Via Natural or Artificial Opening (ICD-10-PCS; 2019-02-04)
DX: O10.12 Pre-existing hypertensive heart disease complicating childbirth (principal); Z37.0 Single live birth; I16.0 Hypertensive urgency; E66.9 Obesity, unspecified; O70.0 First degree perineal laceration during delivery; O99.214 Obesity complicating childbirth; O99.284 Endocrine, nutritional and metabolic diseases complicating childbirth; E03.9 Hypothyroidism, unspecified; O99.52 Diseases of the respiratory system complicating childbirth; J45.909 Unspecified asthma, uncomplicated; Z3A.38 38 weeks gestation of pregnancy; Z79.82 Long term (current) use of aspirin; Z79.890 Hormone replacement therapy; Z88.1 Allergy status to other antibiotic agents; Z82.3 Family history of stroke; Z82.49 Family history of ischemic heart disease and other diseases of the circulatory system; Z82.5 Family history of asthma and other chronic lower respiratory diseases; Z83.3 Family history of diabetes mellitus; Z83.49 Family history of other endocrine, nutritional and metabolic diseases; Z82.0 Family history of epilepsy and other diseases of the nervous system
CPT/HCPCS: 80048; 84450; 84460; 84550; 85025; 85610; 85730; 86850; 86900; 86901; 88307

== ENCOUNTER 2019-02-08 11:25 | Emergency (ER) | payer OTHER ==
[2019-02-08 11:42] VITALS: RESP 18
[2019-02-08] MEDS ORDERED: SODIUM CHLORIDE 0.9% 1,000 ML IV STA (12:24)
--- NOTE | 2019-02-08 12:38 | ED ---
Recheck HPI - General Chief Complaint: Recheck/Abnormal Lab/Rx Stated Complaint: LOW BP POST MATERNITY Time Seen by Provider: 02/08/19 11:47 Source: patient, RN notes reviewed, old records reviewed Mode of arrival: wheelchair Limitations: no limitations - History of Present Illness Initial Comments: Patient is a 29-year-old female who delivered a baby this past week. She states she was having high blood pressure during her . She was sent in for further evaluation. She took her blood pressure pills today and had low blood pressure felt dizzy. She states she is feeling better upon arrival. She reports that when she took her blood pressure she's feeling dizzy was 90/50. She states it took her 2 blood pressure pills within 30 minutes of each other. Patient is on 600 mg of labetalol, andNow 30 mg of Procardia. Patient myrna monte has been recently started on Procardia after her recent delivery. She denies any vaginal bleeding, right upper quadrant pain or headaches. Patient states that she is currently breast-feeding. She states that she has been tired with her new but has otherwise been doing well. - Related Data Home Medications Medication Instructions Recorded Confirmed Levothyroxine Sodium [Synthroid] 50 mcg PO DAILY 12/24/18 02/03/19 Aspirin 81 mg PO DAILY 01/08/19 02/03/19 Pnv No.95/Ferrous Fum/Folic AC 1 tab PO DAILY 01/08/19 02/03/19 [ Multivitamin Tablet] Previous Rx's Medication Instructions Recorded Labetalol [Trandate] 600 mg PO BID #60 tab 02/06/19 NIFEdipine XL [Procardia XL] 30 mg PO DAILY #30 tab.er.24 02/06/19 Allergies Allergy/AdvReac Type Severity Reaction Status Date / Time cefaclor [From Ceclor] Allergy Diarrhea Verified 02/08/19 11:38 Review of Systems ROS Statement: Those systems with pertinent positive or pertinent negative responses have been documented in the HPI. ROS Other: All systems not noted in ROS Statement are negative. Past Medical History Past Medical History: Thyroid Disorder Additional Past Medical History / Comment(s): Long-standing hypertension since age 10 History of Any Multi-Drug Resistant Organisms: None Reported Past Surgical History: No Surgical Hx Reported Past Anesthesia/Blood Transfusion Reactions: No Reported Reaction Past Psychological History: No Psychological Hx Reported Smoking Status: Never smoker Past Alcohol Use History: None Reported Past Drug Use History: None Reported - Past Family History Mother Family Medical History: No Reported History General Exam - General Exam Comments Initial Comments: There is a 29-year-old female. Alert and oriented 3. No distress. Limitations: no limitations General appearance: alert, in no apparent distress Head exam: Present: atraumatic, normocephalic, normal inspection Eye exam: Present: normal appearance, PERRL, EOMI. Absent: scleral icterus, conjunctival injection, periorbital swelling ENT exam: Present: normal exam, mucous membranes moist Neck exam: Present: normal inspection. Absent: tenderness, meningismus, lymphadenopathy Extremities exam: Present: normal inspection, full ROM, normal capillary refill. Absent: tenderness, pedal edema, joint swelling, calf tenderness Back exam: Present: normal inspection Neurological exam: Present: alert, oriented X3, CN II-XII intact Psychiatric exam: Present: normal affect, normal mood Skin exam: Present: warm, dry, intact, normal color. Absent: rash Course Vital Signs 02/08/19 02/08/19 11:38 14:38 Temperature 98.2 F 98.6 F Pulse Rate 85 80 Respiratory 18 18 Rate Blood Pressure 122/84 136/83 O2 Sat by Pulse 98 99 Oximetry Medical Decision Making - Medical Decision Making 29-year-old female 2 days post delivery of a baby girl presents today with complaints of low blood pressure after taking her 2 blood pressure pills. She is on 600 mg of labetalol twice a day as well as now though medication Procardia. At this time Patient has no significant place she's feeling better upon arrival. Blood pressure has been stable. I discussed that this may be too much of a blood pressure medication discussed she may need to call her PHYS ASSISTANT to decrease it. I discussed giving appropriate log of her blood pressures and she is post follow-up within the next 2 weeks. I discussed no further blood pressure medication today but can resume it tomorrow. Her recommend spacing her blood pressure meds as well. Labs are unremarkable. All questions were answered return parameters were discussed. Is in no patient's urine sample did have blood and white blood cells however with this is normal after she is currently bleeding after delivery. Discussed that we'll culture this. - Lab Data Result diagrams: 02/08/19 12:42 02/08/19 12:42 Lab Results 02/08/19 02/08/19 02/08/19 Range/Units 12:42 12:42 12:42 WBC 9.3 (3.8-10.6) k/uL RBC 3.65 L (3.80-5.40) m/uL Hgb 11.2 L (11.4-16.0) gm/dL Hct 33.3 L (34.0-46.0) % MCV 91.4 (80.0-100.0) fL MCH 30.8 (25.0-35.0) pg MCHC 33.7 (31.0-37.0) g/dL RDW 14.5 (11.5-15.5) % Plt Count 239 (150-450) k/uL Neutrophils % 77 % Lymphocytes % 13 % Monocytes % 5 % Eosinophils % 3 % Basophils % 0 % Neutrophils # 7.2 (1.3-7.7) k/uL Lymphocytes # 1.2 (1.0-4.8) k/uL Monocytes # 0.5 (0-1.0) k/uL Eosinophils # 0.3 (0-0.7) k/uL Basophils # 0.0 (0-0.2) k/uL PT 9.3 (9.0-12.0) sec INR 0.8 (<1.2) APTT 22.2 (22.0-30.0) sec Sodium 139 (137-145) mmol/L Potassium 4.2 (3.5-5.1) mmol/L Chloride 109 H (98-107) mmol/L Carbon Dioxide 25 (22-30) mmol/L Anion Gap 5 mmol/L BUN 15 (7-17) mg/dL Creatinine 0.64 (0.52-1.04) mg/dL Est GFR (CKD-EPI)AfAm >90 (>60 ml/min/1.73 sqM) Est GFR (CKD-EPI)NonAf >90 (>60 ml/min/1.73 sqM) Glucose 85 (74-99) mg/dL Uric Acid (3.7-7.4) mg/dL Calcium 9.0 (8.4-10.2) mg/dL Magnesium 1.9 (1.6-2.3) mg/dL Total Bilirubin 0.5 (0.2-1.3) mg/dL AST 31 (14-36) U/L ALT 28 (9-52) U/L Alkaline Phosphatase 84 (38-126) U/L Troponin I (0.000-0.034) ng/mL Total Protein 6.3 (6.3-8.2) g/dL Albumin 3.2 L (3.5-5.0) g/dL Urine Color Urine Appearance (Clear) Urine pH (5.0-8.0) Ur Specific [place] (1.001-1.035) Urine Protein (Negative) Urine Glucose (UA) (Negative) Urine Ketones (Negative) Urine Blood (Negative) Urine Nitrite (Negative) Urine Bilirubin (Negative) Urine Urobilinogen (<2.0) mg/dL Ur Leukocyte Esterase (Negative) Urine RBC (0-5) /hpf Urine WBC (0-5) /hpf Ur Squamous Epith Cells (0-4) /hpf Urine Bacteria (None) /hpf Urine Mucus (None) /hpf 02/08/19 02/08/19 02/08/19 Range/Units 12:42 12:42 12:49 WBC (3.8-10.6) k/uL RBC (3.80-5.40) m/uL Hgb (11.4-16.0) gm/dL Hct (34.0-46.0) % MCV (80.0-100.0) fL MCH (25.0-35.0) pg MCHC (31.0-37.0) g/dL RDW (11.5-15.5) % Plt Count (150-450) k/uL Neutrophils % % Lymphocytes % % Monocytes % % Eosinophils % % Basophils % % Neutrophils # (1.3-7.7) k/uL Lymphocytes # (1.0-4.8) k/uL Monocytes # (0-1.0) k/uL Eosinophils # (0-0.7) k/uL Basophils # (0-0.2) k/uL PT (9.0-12.0) sec INR (<1.2) APTT (22.0-30.0) sec Sodium (137-145) mmol/L Potassium (3.5-5.1) mmol/L Chloride (98-107) mmol/L Carbon Dioxide (22-30) mmol/L Anion Gap mmol/L BUN (7-17) mg/dL Creatinine (0.52-1.04) mg/dL Est GFR (CKD-EPI)AfAm (>60 ml/min/1.73 sqM) Est GFR (CKD-EPI)NonAf (>60 ml/min/1.73 sqM) Glucose (74-99) mg/dL Uric Acid 6.1 (3.7-7.4) mg/dL Calcium (8.4-10.2) mg/dL Magnesium (1.6-2.3) mg/dL Total Bilirubin (0.2-1.3) mg/dL AST (14-36) U/L ALT (9-52) U/L Alkaline Phosphatase (38-126) U/L Troponin I <0.012 (0.000-0.034) ng/mL Total Protein (6.3-8.2) g/dL Albumin (3.5-5.0) g/dL Urine Color Yellow Urine Appearance Cloudy H (Clear) Urine pH 6.5 (5.0-8.0) Ur Specific [place] 1.016 (1.001-1.035) Urine Protein Trace H (Negative) Urine Glucose (UA) Negative (Negative) Urine Ketones Negative (Negative) Urine Blood Moderate H (Negative) Urine Nitrite Negative (Negative) Urine Bilirubin Negative (Negative) Urine Urobilinogen <2.0 (<2.0) mg/dL Ur Leukocyte Esterase Large H (Negative) Urine RBC 140 H (0-5) /hpf Urine WBC 79 H (0-5) /hpf Ur Squamous Epith Cells 1 (0-4) /hpf Urine Bacteria Rare H (None) /hpf Urine Mucus Rare H (None) /hpf - Radiology Data Radiology results: report reviewed EKG shows normal sinus rhythm with sinus arrhythmia, ventricular full-term 3. Cannot rule out septal infarct. Ventricular rate 60 beats were minute. Intervals 176 ms. QS duration is 86 no seconds. QT QTc is 408/433 ms Disposition Clinical Impression: Dizziness, Hypotension Disposition: HOME SELF-CARE Condition: Good Instructions (If sedation given, give patient instructions): Dizziness (ED) Additional Instructions: Patient is advised to not have any further blood pressure medications today. Patient should call PHYS ASSISTANT tomorrow. I discussed possible discontinuation of Procardia. Patient advised to have plenty of fluids. Rest, remain hydrated. Is patient prescribed a controlled substance at d/c from ED?: No Referrals: Harini Ghosh MD [Primary Care Provider] - 1-2 days Time of Disposition: 14:07
[2019-02-08 13:05] LABS: Basophils % (A) 0 %; Eosinophils # (A) 0.3 k/uL (0-0.7); Eosinophils % (A) 3 %; HCT 33.3 % (34.0-46.0); HGB 11.2 gm/dL (11.4-16.0); Lymphocytes # (A) 1.2 k/uL (1.0-4.8); Lymphocytes % (A) 13 %; MCH 30.8 pg (25.0-35.0); MCHC 33.7 g/dL (31.0-37.0); MCV 91.4 fL (80.0-100.0); Monocytes # (A) 0.5 k/uL (0-1.0); Monocytes % (A) 5 %; Neutrophils # (A) 7.2 k/uL (1.3-7.7); Neutrophils % (A) 77 %; Platelet Count 239 k/uL (150-450); RBC 3.65 m/uL (3.80-5.40); RDW 14.5 % (11.5-15.5); WBC 9.3 k/uL (3.8-10.6)
[2019-02-08 13:06] LABS: ALT 28 U/L (9-52); AST 31 U/L (14-36); African American GFR (CKD) >90 (>60 ml/min/1.73 sqM); Albumin 3.2 g/dL (3.5-5.0); Alkaline Phosphatase 84 U/L (38-126); Anion Gap 5 mmol/L; Blood Urea Nitrogen 15 mg/dL (7-17); Carbon Dioxide 25 mmol/L (22-30); Chloride 109 mmol/L (98-107); Glucose 85 mg/dL (74-99); Magnesium 1.9 mg/dL (1.6-2.3); Non-African American GFR(CKD) >90 (>60 ml/min/1.73 sqM); Potassium 4.2 mmol/L (3.5-5.1); Sodium 139 mmol/L (137-145); Total Bilirubin 0.5 mg/dL (0.2-1.3); Total Protein 6.3 g/dL (6.3-8.2)
[2019-02-08 13:11] LABS: INR 0.8 (<1.2); Partial Thromboplastin Time 22.2 sec (22.0-30.0); Prothrombin Time 9.3 sec (9.0-12.0)
[2019-02-08 13:19] LABS: Appearance,Urine Cloudy (Clear); Bacteria,Urine Rare /hpf; Bilirubin,Urine Negative (Negative); Blood,Urine Moderate (Negative); Color,Urine Yellow; Glucose,Urine (UA) Negative (Negative); Ketones,Urine Negative (Negative); Leukocyte Esterase,Urine Large (Negative); Mucus,Urine Rare /hpf; Nitrite,Urine Negative (Negative); PH, Urine 6.5 (5.0-8.0); Protein,Urine Trace (Negative); RBC,Urine 140 /hpf (0-5); Specific Gravity,Urine 1.016 (1.001-1.035); Squamous Epithelial Cell,Urine 1 /hpf (0-4); Urobilinogen,Urine <2.0 mg/dL (<2.0); WBC,Urine 79 /hpf (0-5)
[2019-02-08 14:39] VITALS: BP 136/83; PULSE 80; TEMP 98.6
== END 2019-02-08 14:40 | disposition home or self-care (01) ==
LOC: EC 11:25
DX: O99.43 Diseases of the circulatory system complicating the puerperium (principal); I95.9 Hypotension, unspecified; O99.285 Endocrine, nutritional and metabolic diseases complicating the puerperium; E03.9 Hypothyroidism, unspecified; Z88.1 Allergy status to other antibiotic agents; Z79.82 Long term (current) use of aspirin; Z79.890 Hormone replacement therapy
CPT/HCPCS: 36415; 80053; 81001; 83735; 84484; 84550; 85025; 85610; 85730; 87086; 93005; 96360; 99285

== ENCOUNTER 2019-07-11 18:19 | Emergency (ER) | payer OTHER ==
[2019-07-11 18:31] VITALS: RESP 18
--- NOTE | 2019-07-11 18:58 | ED ---
General Adult HPI - General Chief complaint: Psychiatric Symptoms Stated complaint: Mental Health Time Seen by Provider: 07/11/19 18:31 Source: patient, RN notes reviewed, old records reviewed Mode of arrival: ambulatory Limitations: no limitations - History of Present Illness Initial comments: 29-year-old female presenting for psychiatric evaluation. Patient states she's had increasing depression and thoughts of suicide for some time. She states that today this was significantly worse she felt that she wanted to stab herself with a knife. Patient denies any self-harm. She states she had an argument with her boyfriend which did prompt some of her emotions. No physical complaints. - Related Data Home Medications Medication Instructions Recorded Confirmed Levothyroxine Sodium [Synthroid] 50 mcg PO DAILY 12/24/18 02/03/19 Aspirin 81 mg PO DAILY 01/08/19 02/03/19 Pnv No.95/Ferrous Fum/Folic AC 1 tab PO DAILY 01/08/19 02/03/19 [ Multivitamin Tablet] Previous Rx's Medication Instructions Recorded Labetalol [Trandate] 600 mg PO BID #60 tab 02/06/19 NIFEdipine XL [Procardia XL] 30 mg PO DAILY #30 tab.er.24 02/06/19 Allergies Allergy/AdvReac Type Severity Reaction Status Date / Time cefaclor [From Ceclor] Allergy Diarrhea Verified 07/11/19 18:28 Review of Systems ROS Statement: Those systems with pertinent positive or pertinent negative responses have been documented in the HPI. ROS Other: All systems not noted in ROS Statement are negative. Past Medical History Past Medical History: Thyroid Disorder Additional Past Medical History / Comment(s): Long-standing hypertension since age 10 History of Any Multi-Drug Resistant Organisms: None Reported Past Surgical History: No Surgical Hx Reported Past Anesthesia/Blood Transfusion Reactions: No Reported Reaction Past Psychological History: Depression Smoking Status: Never smoker Past Alcohol Use History: None Reported Past Drug Use History: None Reported - Past Family History Mother Family Medical History: No Reported History General Exam Limitations: no limitations General appearance: alert, in no apparent distress Head exam: Present: atraumatic, normocephalic Eye exam: Present: normal appearance, PERRL ENT exam: Present: normal exam Neck exam: Present: normal inspection. Absent: tenderness, meningismus Respiratory exam: Present: normal lung sounds bilaterally. Absent: respiratory distress Cardiovascular Exam: Present: regular rate, normal rhythm GI/Abdominal exam: Present: soft. Absent: distended, tenderness, guarding Extremities exam: Present: normal inspection, normal capillary refill. Absent: pedal edema, joint swelling Neurological exam: Present: alert, oriented X3 Psychiatric exam: Present: depressed, flat affect, suicidal ideation Skin exam: Present: warm, dry, intact. Absent: cyanosis, diaphoretic Course Vital Signs 07/11/19 18:28 Temperature 97.7 F Pulse Rate 114 H Respiratory 18 Rate Blood Pressure 129/92 O2 Sat by Pulse 100 Oximetry Medical Decision Making - Medical Decision Making 29-year-old female with suicidal ideation and depression. Patient evaluated by EPS and felt to be safe for discharge. She is no longer suicidal, she is willing to sign a safety plan. She's given an outpatient referral for psychiatric services. Stable for discharge. Disposition Clinical Impression: Depression Disposition: ADMITTED IP TO THIS [facility] Condition: Stable Instructions (If sedation given, give patient instructions): Depression (ED) Additional Instructions: Please follow up with community mental health. Please return with worsening or changing symptoms Is patient prescribed a controlled substance at d/c from ED?: No Referrals: Viktor Ag DO [Primary Care Provider] - 1-2 days Time of Disposition: 20:00
[2019-07-11 20:05] VITALS: BP 158/95; PULSE 81; TEMP 97.5
== END 2019-07-11 20:02 | disposition other institution (70) ==
LOC: EC 18:19
DX: F32.9 Major depressive disorder, single episode, unspecified (principal); R45.851 Suicidal ideations; E07.9 Disorder of thyroid, unspecified; Z79.890 Hormone replacement therapy; Z79.82 Long term (current) use of aspirin; Z88.1 Allergy status to other antibiotic agents
CPT/HCPCS: 82075; 99285